=== PATIENT | male | born 1970 | race Caucasian/White ===

== ENCOUNTER 2017-10-03 16:48 | Emergency (ER) | payer SELFPAY ==
[~2017-10-03] VITALS: Ht 175.3 cm; Wt 78.0 kg
[2017-10-03] MEDS ORDERED: NS IV 1000 ML 1,000 ML IV ONE (17:21)
[2017-10-03 17:53] LABS: BASOPHILS % (AUTO) 0 % (0-10); EOSINOPHILS % (AUTO) 0 % (0-10); HEMATOCRIT 34 % (40-54); HEMOGLOBIN 12.3 G/DL (13.3-17.7); LYMPHOCYTES # (AUTO) 0.8 X 10^3 (1.0-4.0); LYMPHOCYTES % (AUTO) 6 % (12-44); MEAN CORPUSCULAR HEMOGLOBIN 28 PG (25-34); MEAN CORPUSCULAR HGB CONC 37 G/DL (32-36); MEAN CORPUSCULAR VOLUME 76 FL (80-99); MEAN PLATELET VOLUME 10.5 FL (7.4-10.4); MONOCYTES # (AUTO) 1.2 X 10^3 (0.0-1.0); MONOCYTES % (AUTO) 9 % (0-12); NEUTROPHILS # (AUTO) 11.4 X 10^3 (1.8-7.8); NEUTROPHILS % (AUTO) 85 % (42-75); PLATELET COUNT 215 10^3/uL (130-400); RED BLOOD COUNT 4.43 10^6/uL (4.35-5.85); RED CELL DISTRIBUTION WIDTH 13.5 % (10.0-14.5); WHITE BLOOD COUNT 13.5 10^3/uL (4.3-11.0)
[2017-10-03 17:58] LABS: BILIRUBIN,URINE NEGATIVE (NEGATIVE); CLARITY,URINE VERY CLOUDY; COLOR,URINE YELLOW; GLUCOSE, URINE (UA) 4+ (NEGATIVE); KETONES,URINE 2+ (NEGATIVE); LEUKOCYTE ESTERASE ,URINE 3+ (NEGATIVE); NITRITE,URINE NEGATIVE (NEGATIVE); PH,URINE 5 (5-9); PROTEIN,URINE 2+ (NEGATIVE); UROBILINOGEN,URINE NORMAL (NORMAL)
[2017-10-03] MEDS ORDERED: inSUlin (REGULAR) HUMAN 1 UNIT/0.01 ML (CHARGE PER UNIT) IV ONE (18:00)
[2017-10-03 18:04] LABS: BAND NEUTROPHILS 0 %; BASOPHILS % (MANUAL) 0 %; EOSINOPHILS % (MANUAL) 0 %; LYMPHOCYTES % (MANUAL) 12 %; MICROCYTOSIS SLIGHT; MONOCYTES % (MANUAL) 3 %; NEUTROPHILS % (MANUAL) 85 %
[2017-10-03 18:06] LABS: BACTERIA,URINE LARGE /HPF; WBC,URINE TNTC /HPF
--- NOTE | 2017-10-03 18:06 | ED General ---
General Stated Complaint: HEADACHE,BACK PAIN,FEVER,HIGH BS,VOMITING Source of Information: Patient Exam Limitations: No Limitations (YUDITH CANTU MD) History of Present Illness Date Seen by Provider: Oct 03, 2017 Time Seen by Provider: 16:55 Initial Comments This 47-year-old gentleman presents to the emergency room by private vehicle as a referral from the walk-in clinic at [facility]. He reports having intermittent fevers since September 29. Temperature has reportedly a been up to 104. He has also had vomiting since that time. He is a type II diabetic and has been unable to keep his medications down because of vomiting. Blood sugars at [facility] were reportedly in the 400-600 range. He received a liter of IV fluids while there. He has felt confused at times. He has had some headache and lower backache. He worked outside doing some mowing in the heat last week and then also working outside with horses on September 29. He believes he got overheated and that started his illness. He has lost appetite and has not been eating or drinking well. He denies any drug or alcohol use. (YUDITH CANTU MD) Allergies and Home Medications Allergies Coded Allergies: No Known Drug Allergies (Unverified , 10/03/17) Home Medications Cephalexin 500 Mg Tablet, 500 MG PO BID Prescribed by: MIGUELANGEL MORFIN on 10/03/172058 Patient Home Medication List Home Medication List Reviewed: Yes (YUDITH CANTU MD) Home Medication List Reviewed: Yes (MIGUELANGEL MORFIN) Review of Systems Constitutional: see HPI EENTM: no symptoms reported Respiratory: no symptoms reported Cardiovascular: no symptoms reported Gastrointestinal: see HPI Genitourinary: no symptoms reported Musculoskeletal: see HPI Skin: no symptoms reported Psychiatric/Neurological: See HPI Hematologic/Lymphatic: No Symptoms Reported Immunological/Allergic: no symptoms reported (YUDITH CANTU MD) Past Apllosz-Wpitlc-Kasvze Hx Past Med/Social Hx: Reviewed and Corrections made (YUDITH CANTU MD) Patient Social History Alcohol Use: Denies Use Recent Foreign Travel: No Contact w/Someone Who Travel: No (YUDITH CANTU MD) Past Medical History Surgeries: Yes Appendectomy, Eye Surgery, Orthopedic (shoulder) Respiratory: No Cardiac: No Neurological: No Reproductive Disorders: No Genitourinary: No Gastrointestinal: No Musculoskeletal: No Endocrine: Yes Diabetes, Non-Insulin dep HEENT: No Cancer: No Did You Recieve Any Treatments: No Psychosocial: No Integumentary: No (YUDITH CANTU MD) Physical Exam Vital Signs Vital Signs - First Documented 10/03/17 17:05 Temp 98.4 Pulse 97 Resp 18 B/P (MAP) 122/85 (97) O2 Delivery Room Air (MIGUELANGEL MORFIN) Vital Signs Capillary Refill : (YUDITH CANTU MD) General Appearance: No Apparent Distress, WD/WN HEENT: PERRL/EOMI, Normal ENT Inspection, Pharynx Normal, Other (oropharynx somewhat dry) Neck: Normal Inspection Respiratory: Lungs Clear, Normal Breath Sounds, No Accessory Muscle Use, No Respiratory Distress Cardiovascular: Regular Rate, Rhythm, No Edema, No Murmur Gastrointestinal: Normal Bowel Sounds, Non Tender, Soft Extremity: Normal Inspection, No Pedal Edema Neurologic/Psychiatric: Alert, Oriented x3, No Motor/Sensory Deficits, Normal Mood/Affect, pot fisher II-XII Norm as Tested Skin: Normal Color, Warm/Dry (YUDITH CANTU MD) Progress/Results/Core Measures Suspected Sepsis SIRS Temperature: Pulse: Respiratory Rate: Laboratory Tests 10/03/17 17:42: White Blood Count 13.5H Blood Pressure / Mean: Laboratory Tests 10/03/17 17:42: Creatinine 1.26, Platelet Count 215, Total Bilirubin 0.6 (YUDITH CANTU MD) Results/Orders Lab Results Laboratory Tests Test 10/03/17 17:22 10/03/17 17:42 10/03/17 17:53 10/03/17 18:52 Range/Units Glucometer 377 H 305 H 70-110 MG/DL White Blood Count 13.5 H 4.3-11.0 10^3/uL Red Blood Count 4.43 4.35-5.85 10^6/uL Hemoglobin 12.3 L 13.3-17.7 G/DL Hematocrit 34 L 40-54 % Mean Corpuscular Volume 76 L 80-99 FL Mean Corpuscular Hemoglobin 28 25-34 PG Mean Corpuscular Hemoglobin Concent 37 H 32-36 G/DL Red Cell Distribution Width 13.5 10.0-14.5 % Platelet Count 215 130-400 10^3/uL Mean Platelet Volume 10.5 H 7.4-10.4 FL Neutrophils (%) (Auto) 85 H 42-75 % Lymphocytes (%) (Auto) 6 L 12-44 % Monocytes (%) (Auto) 9 0-12 % Eosinophils (%) (Auto) 0 0-10 % Basophils (%) (Auto) 0 0-10 % Neutrophils # (Auto) 11.4 H 1.8-7.8 X 10^3 Lymphocytes # (Auto) 0.8 L 1.0-4.0 X 10^3 Monocytes # (Auto) 1.2 H 0.0-1.0 X 10^3 Eosinophils # (Auto) 0.0 0.0-0.3 10^3/uL Basophils # (Auto) 0.0 0.0-0.1 10^3/uL Neutrophils % (Manual) 85 % Lymphocytes % (Manual) 12 % Monocytes % (Manual) 3 % Eosinophils % (Manual) 0 % Basophils % (Manual) 0 % Band Neutrophils 0 % Microcytosis SLIGHT Sodium Level 124 *L 135-145 MMOL/L Potassium Level 3.7 3.6-5.0 MMOL/L Chloride Level 90 L 98-107 MMOL/L Carbon Dioxide Level 19 L 21-32 MMOL/L Anion Gap 15 H 5-14 MMOL/L Blood Urea Nitrogen 28 H 7-18 MG/DL Creatinine 1.26 0.60-1.30 MG/DL Estimat Glomerular Filtration Rate > 60 BUN/Creatinine Ratio 22 Glucose Level 389 H 70-105 MG/DL Calcium Level 8.2 L 8.5-10.1 MG/DL Magnesium Level 1.9 1.8-2.4 MG/DL Total Bilirubin 0.6 0.1-1.0 MG/DL Aspartate Amino Transf (AST/SGOT) 14 5-34 U/L Alanine Aminotransferase (ALT/SGPT) 14 0-55 U/L Alkaline Phosphatase 93 40-136 U/L Total Protein 6.2 L 6.4-8.2 GM/DL Albumin 2.8 L 3.2-4.5 GM/DL Urine Color YELLOW Urine Clarity VERY CLOUDY H Urine pH 5 5-9 Urine Specific [place] 1.010 L 1.016-1.022 Urine Protein 2+ H NEGATIVE Urine Glucose (UA) 4+ H NEGATIVE Urine Ketones 2+ H NEGATIVE Urine Nitrite NEGATIVE NEGATIVE Urine Bilirubin NEGATIVE NEGATIVE Urine Urobilinogen NORMAL NORMAL MG/DL Urine Leukocyte Esterase 3+ H NEGATIVE Urine RBC (Auto) 5+ H NEGATIVE Urine RBC 2-5 H /HPF Urine WBC TNTC H /HPF Urine Crystals NONE /LPF Urine Bacteria LARGE H /HPF Urine Casts PRESENT /LPF Urine Coarse Granular Casts 10-25 H /LPF Urine Mucus NEGATIVE /LPF Urine Culture Indicated YES (MIGUELANGEL MORFIN) My Orders Orders - MIGUELANGEL MORFIN Ceftriaxone Injection (Rocephin Injectio (10/03/17 18:30) Saline Lock/Iv-Start (10/03/17 18:36) Ns Iv 1000 Ml (Sodium Chloride 0.9%) (10/03/17 18:36) (MIGUELANGEL MORFIN) Medications Given in ED Current Medications Medications Dose Ordered Sig/Magy Route Start Time Stop Time Status Last Admin Dose Admin Ceftriaxone Sodium 1000 mg/ Sodium Chloride 50 ml @ 100 mls/hr ONCE ONCE IV 10/03/17 18:30 10/03/17 18:59 DC 10/03/17 18:37 100 MLS/HR Insulin Human Regular 5 unit ONCE ONCE IV 10/03/17 18:00 10/03/17 18:01 DC 10/03/17 18:09 5 UNIT Sodium Chloride 1,000 ml @ 0 mls/hr Q0M ONCE IV 10/03/17 17:21 10/03/17 17:27 DC 10/03/17 17:41 1,000 MLS/HR (MIGUELANGEL MORFIN) Vital Signs/I&O 10/03/17 17:05 Temp 98.4 Pulse 97 Resp 18 B/P (MAP) 122/85 (97) O2 Delivery Room Air (MIGUELANGEL MORFIN) Vital Signs/I&O Capillary Refill : (YUDITH CANTU MD) Point of Care Testing Finger Stick Blood Glucose: 377 Blood Glucose Action Taken: nurse notified (YUDITH CANTU MD) Progress Note : Time: 18:06 Progress Note Patient was seen and examined. Labs were ordered. A liter of IV fluids is infusing. Insulin 5 units IV was ordered to help drive down blood sugar. Patient denied any nausea at this time and no medications were required for treatment of nausea. Labs are still pending. Care of this patient has been transferred to Dr. Morfin at this time. (YUDITH CANTU MD) Progress Note #1: Time: 18:28 Progress Note I saw and examined the patient after taking over his care from Dr. Johnson. I agree with the initial history, physical exam and review of systems. The patient seems to have gotten over heated, heat exhaustion, dehydration and cannot take his blood sugar medicine so his blood sugars went up to 400+ range according to his history and this probably led to a urinary tract infection. He is hyponatremic probably due to his dehydration secondary to uncontrolled diabetes and heat exhaustion. He's been given his 5 units of insulin we'll recheck his sugars run about 20-30 minutes. We are going to give him some Rocephin and the option to stay observation to have labs rechecked or we can follow him up in the clinic in the next day or 2. Right now he says his headache and pain is gone he is no longer having any malaise tiredness or weakness in his feeling much better. He is now producing some urine. Progress Note #2: Time: 18:37 Progress Note After discussing the options patient says that he can get up and walk around after getting his third bag of fluids for the day and his blood sugars are getting under better control to tolerate some by mouth fluids here in the ER we' ll give him his Rocephin now and some antibiotics to go home on and have him follow up with his scheduled appointment on the which is 2 days from now. He does not call them tomorrow and get set up to have labs and urine re- drawn . Progress Note #3: Time: 20:54 Progress Note The patient was gotten up and walked around the ER a few times feeling much better having no pain, weakness or nausea. We have offered observation stay for repeat labs in the morning and some gentle fluids overnight versus going home drinking fluids resting staying in the cool and following up in 2 days with his scheduled appointment and he has declined a hospital stay. (MIGUELANGEL MORFIN) Departure Impression Primary Impression: Dehydration after exertion Additional Impressions: Heat exhaustion due to salt depletion, initial encounter History of diabetes mellitus, type II Urinary tract infection Qualified Codes: N30.01 - Acute cystitis with hematuria Disposition: HOME, SELF-CARE Condition: Improved Departure-Patient Inst. Decision time for Depature: 20:56 (MIGUELANGEL MORFIN) Referrals: NO,LOCAL PHYSICIAN (PCP) Primary Care Physician Patient Instructions: Urinary Tract Infection, Adult (DC) Add. Discharge Instructions: Go home and drink plenty of fluids. Have a half strength sports drink a day. Stay in the cool and rest. Do not use ibuprofen or Naprosyn. You can use Tylenol if you're having some aches. Tomorrow morning call your primary care doctor's office and asked them to repeat labs and urinalysis before your appointment , 2 days from now. Return to the ER if you have worsening or new symptoms. 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 Scripts Cephalexin (Cephalexin) 500 Mg Tablet 500 MG PO BID for 7 Days, #14 TAB 0 Refills Prov: MIGUELANGEL MORFIN 10/03/17 Copy Copies To 1: LOAN RYAN JOSHUA T MD Oct 03, 2017 18:05 MIGUELANGEL MORFIN Oct 03, 2017 18:30
[2017-10-03 18:14] LABS: ALANINE AMINOTRANSFERASE 14 U/L (0-55); ALBUMIN 2.8 GM/DL (3.2-4.5); ALKALINE PHOSPHATASE 93 U/L (40-136); BILIRUBIN,TOTAL 0.6 MG/DL (0.1-1.0); BUN/CREATININE RATIO 22; CALCIUM 8.2 MG/DL (8.5-10.1); CARBON DIOXIDE 19 MMOL/L (21-32); CHLORIDE 90 MMOL/L (98-107); CREATININE SERUM 1.26 MG/DL (0.60-1.30); GFR ESTIMATED > 60; GLUCOSE 389 MG/DL (70-105); MAGNESIUM 1.9 MG/DL (1.8-2.4); POTASSIUM 3.7 MMOL/L (3.6-5.0); TOTAL PROTEIN 6.2 GM/DL (6.4-8.2)
[2017-10-03 18:21] LABS: SODIUM 124 MMOL/L (135-145)
[2017-10-03] MEDS ORDERED: cefTRIAXone INJECTION 1,000 MG in NS (IVPB) 50 ML IV ONE (18:30)
[2017-10-03] MEDS ORDERED: NS IV 1000 ML 1,000 ML IV SCH (18:36)
[2017-10-03] MEDS ORDERED: CEPH500T PO (20:59)
[2017-10-03 21:15] VITALS: BP 120/84
== END 2017-10-03 21:15 | disposition home or self-care (01) ==
LOC: ER 16:51
DX: T67.4XXA Heat exhaustion due to salt depletion, initial encounter (principal); E86.0 Dehydration; E11.9 Type 2 diabetes mellitus without complications; N39.0 Urinary tract infection, site not specified; Z90.49 Acquired absence of other specified parts of digestive tract
CPT/HCPCS: 36415; 80053; 81000; 82962; 83735; 85007; 85027; 87077; 87088; 87186; 96361; 96365; 96375

== ENCOUNTER 2021-02-13 17:54 | Inpatient (IN) | payer SELFPAY ==
[~2021-02-13] VITALS: Ht 175.3 cm; Wt 97.4 kg
[~2021-02-13 17:54] MED LIST: CEPH500T PO
[2021-02-13] MEDS ORDERED: KETOROLAC 30 MG/ML VIAL IVP ONE (18:15)
[2021-02-13] MEDS ORDERED: ANTACID SUSP 30 ML UDC (MYLANTA) PO ONE (18:15)
[2021-02-13] MEDS ORDERED: LACTATED RINGERS 1,000 ML IV SCH (18:15)
[2021-02-13] MEDS ORDERED: LIDOCAINE 2% VISCOUS 15 ML UDC PO ONE (18:15)
[2021-02-13] MEDS ORDERED: HYOSCYAMINE 0.125 MG (LEVSIN) TAB PO ONE (18:15)
[2021-02-13] MEDS ORDERED: fentaNYL INJ 100 MCG/2 ML AMP IVP ONE ×2 (18:15→19:30)
--- NOTE | 2021-02-13 18:17 | ED Abdominal Pain ---
General Chief Complaint: Abdominal/GI Problems Stated Complaint: RUQ PAIN Nursing Triage Note: PT AMBULATE TO ROOM 03 WITH C/O RUQ PAIN STARTING X3-4 HOURS AGO. PT REPORTS DRINKING X1 BEER TO "HELP ME BURP" AND STATES THAT HE VOMITED AFTER. PT REPORT TAKING HYDROCODONE AT 1545. Source of Information: Patient Exam Limitations: No Limitations (ALMA PINA APRN) History of Present Illness Date Seen by Provider: Feb 13, 2021 Time Seen by Provider: 18:16 Initial Comments To ER by private vehicle with reports of right upper quadrant abdominal pain for 3 to 4 hours. He last ate a biscuit at about 9 AM this morning. This pain began at about 3 PM. He was traveling from here to [place] for a horse roping competition but had to leave early because of the pain. He has subsequently become nauseated and began vomiting. Timing/Duration: 1-2 Days Severity/Quality: Moderate Location: RUQ Radiation: No Radiation Activities at Onset: None Associated Symptoms: Denies Symptoms, Nausea/Vomiting (ALMA PINA APRN) Allergies and Home Medications Allergies Coded Allergies: No Known Drug Allergies (Unverified , 10/03/17) Patient Home Medication List Home Medication List Reviewed: Yes (ALMA PINA APRN) Cephalexin (Cephalexin) 500 Mg Tablet, 500 MG PO BID Prescribed by: MIGUELANGEL DARLING on 10/03/172058 Review of Systems Review of Systems Constitutional: see HPI EENTM: No Symptoms Reported Respiratory: No Symptoms Reported Cardiovascular: No Symptoms Reported Gastrointestinal: See HPI, Abdominal Pain Genitourinary: No Symptoms Reported Musculoskeletal: no symptoms reported Skin: no symptoms reported Psychiatric/Neurological: No Symptoms Reported Endocrine: No Symptoms Reported Hematologic/Lymphatic: No Symptoms Reported (ALMA PINA APRN) Past Yughtap-Oetmmz-Skktjg Hx Patient Social History Tobacco Use?: No Smoking Status: Never a Smoker Smokeless Tobacco Frequency: Never a User Use of E-Cig and/or Vaping [place]: Never a User Substance use?: No Alcohol Use?: Yes Alcohol Frequency: Rarely Pt feels they are or have been: No (ALMA PINA APRN) Seasonal Allergies Seasonal Allergies: No (ALMA PINA APRN) Past Medical History Surgeries: Yes Appendectomy, Eye Surgery, Orthopedic Respiratory: No Cardiac: No Neurological: No Reproductive Disorders: No Genitourinary: No Gastrointestinal: No Musculoskeletal: No Endocrine: Yes Diabetes, Non-Insulin dep HEENT: No Cancer: No Did You Recieve Any Treatments: No Psychosocial: No Integumentary: No Blood Disorders: No (ALMA PINA APRN) Physical Exam Vital Signs Vital Signs - First Documented 02/13/21 18:00 Temp 36.9 Pulse 82 Resp 18 B/P (MAP) 200/101 (134) O2 Delivery Room Air (YUDITH CANTU MD) Vital Signs Capillary Refill : Less Than 3 Seconds (ALMA PINA APRN) Height/Weight/BMI Height: 5'9.00" Weight: 172lbs. oz. 78.745996hs; 32.00 BMI Method:Stated General Appearance: WD/WN, no apparent distress HEENT: PERRL/EOMI, normal ENT inspection Respiratory: no respiratory distress, no accessory muscle use Cardiovascular: regular rate, rhythm, no murmur Gastrointestinal: normal bowel sounds, soft, tenderness Extremities: normal range of motion, non-tender Neurologic/Psychiatric: alert, normal mood/affect, oriented x 3 Skin: normal color, warm/dry (ALMA PINA APRN) Progress/Results/Core Measures Results/Orders Lab Results Laboratory Tests Test 02/13/21 18:16 02/13/21 18:37 Range/Units White Blood Count 10.6 4.3-11.0 10^3/uL Red Blood Count 4.16 L 4.30-5.52 10^6/uL Hemoglobin 11.7 L 13.3-17.7 g/dL Hematocrit 36 L 40-54 % Mean Corpuscular Volume 86 80-99 fL Mean Corpuscular Hemoglobin 28 25-34 pg Mean Corpuscular Hemoglobin Concent 33 32-36 g/dL Red Cell Distribution Width 13.5 10.0-14.5 % Platelet Count 271 130-400 10^3/uL Mean Platelet Volume 10.5 9.0-12.2 fL Immature Granulocyte % (Auto) 0 % Neutrophils (%) (Auto) 80 H 42-75 % Lymphocytes (%) (Auto) 12 12-44 % Monocytes (%) (Auto) 6 0-12 % Eosinophils (%) (Auto) 2 0-10 % Basophils (%) (Auto) 1 0-10 % Neutrophils # (Auto) 8.5 H 1.8-7.8 10^3/uL Lymphocytes # (Auto) 1.3 1.0-4.0 10^3/uL Monocytes # (Auto) 0.6 0.0-1.0 10^3/uL Eosinophils # (Auto) 0.3 0.0-0.3 10^3/uL Basophils # (Auto) 0.1 0.0-0.1 10^3/uL Immature Granulocyte # (Auto) 0.0 0.0-0.1 10^3/uL Sodium Level 134 L 135-145 MMOL/L Potassium Level 4.5 3.6-5.0 MMOL/L Chloride Level 106 98-107 MMOL/L Carbon Dioxide Level 16 L 21-32 MMOL/L Anion Gap 12 5-14 MMOL/L Blood Urea Nitrogen 24 H 7-18 MG/DL Creatinine 1.97 H 0.60-1.30 MG/DL Estimat Glomerular Filtration Rate 36 BUN/Creatinine Ratio 12 Glucose Level 199 H 70-105 MG/DL Calcium Level 8.8 8.5-10.1 MG/DL Corrected Calcium 9.2 8.5-10.1 MG/DL Total Bilirubin 3.5 H 0.1-1.0 MG/DL Aspartate Amino Transf (AST/SGOT) 265 H 5-34 U/L Alanine Aminotransferase (ALT/SGPT) 412 H 0-55 U/L Alkaline Phosphatase 272 H 40-136 U/L Total Protein 6.6 6.4-8.2 GM/DL Albumin 3.5 3.2-4.5 GM/DL Lipase 74 8-78 U/L Serum Alcohol < 10 <10 MG/DL (YUDITH CANTU MD) Vital Signs/I&O 02/13/21 18:00 Temp 36.9 Pulse 82 Resp 18 B/P (MAP) 200/101 (134) O2 Delivery Room Air (YUDITH CANTU MD) Blood Pressure Mean: 134 Departure Communication (Admissions) 1921- spoke with Dr. Leon and Dr. Elliott, will admit the patient, repeat a CMP in the morning, empirically cover with Rocephin and Flagyl, pain and nausea medication. NAME: LILIA STOUT [facility] REC#: [id number] PT STATUS: REG ER : 1970 PHYSICIAN: ALMA PINA TITLE 1 TUTOR ADMIT DATE: 02/13/21/ER Draft Date of Exam:02/13/21 CT ABDOMEN/PELVIS W PROCEDURE: CT abdomen and pelvis with contrast. TECHNIQUE: Multiple contiguous axial images were obtained through the abdomen and pelvis after administration of intravenous contrast. Auto Exposure Controls were utilized during the CT exam to meet ALARA standards for radiation dose reduction. All CT scans use one or more of the following dose optimizing techniques: automated exposure control, MA and/or KvP adjustment based on patient size and exam type or iterative reconstruction. INDICATION: Right upper quadrant abdominal pain. Vomiting. COMPARISON: None. FINDINGS: Included portions of the lung bases are clear. CT ABDOMEN: Normal appendix cannot be adequately identified, but appears to be surgically absent. Small bowel loops are nondistended. Moderate air and stool is noted scattered throughout the colon. There is abnormal thickening of the gallbladder wall. There is also hypoenhancement of the adjacent hepatic parenchyma. Note is also made of mild intrahepatic ductal dilatation. Common bile duct measures 11 mm. This is greater than normal for a patient of this age. Please note, CT is suboptimal to assess for cholelithiasis or choledocholithiasis. No focal pancreatic head masses are seen. Pancreatic duct is decompressed. Pancreas has an otherwise unremarkable CT appearance as well. No focal hepatic lesions are identified. There is normal enhancement of the portal vein. The kidneys, adrenal glands and spleen have a normal CT appearance. Fat-containing supraumbilical hernia is noted. Ostium measures 1.3 cm. No abnormal mesenteric or retroperitoneal adenopathy is seen. There is no loculated fluid collection, free fluid or free air. Osseous structures show no acute abnormality. CT PELVIS: Urinary bladder is grossly unremarkable. There is no loculated fluid collection, free fluid, nor free air within the pelvis. No abnormal lymph nodes are seen. Osseous structures show no acute abnormality. IMPRESSION: 1. Abnormal appearance to the gallbladder as well as the biliary ductal system, as described above. Findings could be on the basis of choledocholithiasis and associated cholecystitis. Ampullary or pancreatic head obstructive neoplasm cannot be excluded. Correlation with MRCP is recommended. 2. Moderate colonic air and stool. Please correlate for constipation. Dictated on workstation # [id number] Dict: 02/13/21 1857 Trans: 02/13/211904 [facility] [id number] Interpreted by: ARLETH MCCLAIN MD Electronically signed by: (ALMA PINA APRN) Impression Primary Impression: Acute cholecystitis due to biliary calculus Disposition: ADMITTED INPATIENT Condition: Stable Admissions Decision to Admit Reason: Admit from ER (General) Decision to Admit/Date: Feb 13, 2021 Time/Decision to Admit Time: 19:22 (ALMA PINA APRN) Departure-Patient Inst. Referrals: NO,LOCAL PHYSICIAN (PCP/Family) Primary Care Physician ATTENDING PHYSICIAN NOTE: I was physically present as attending physician in the emergency department during the care of this patient, but I was not directly involved in the decision making or delivery of care for this patient. (YUDITH CANTU MD) ALMA PINA APRN Feb 13, 2021 18:17 YUDITH CANTU MD Feb 14, 2021 06:33
[2021-02-13 18:21] LABS: BASOPHILS # (AUTO) 0.1 10^3/uL (0.0-0.1); BASOPHILS % (AUTO) 1 % (0-10); EOSINOPHILS # (AUTO) 0.3 10^3/uL (0.0-0.3); EOSINOPHILS % (AUTO) 2 % (0-10); HEMATOCRIT 36 % (40-54); HEMOGLOBIN 11.7 g/dL (13.3-17.7); LYMPHOCYTES # (AUTO) 1.3 10^3/uL (1.0-4.0); LYMPHOCYTES % (AUTO) 12 % (12-44); MEAN CORPUSCULAR HEMOGLOBIN 28 pg (25-34); MEAN CORPUSCULAR HGB CONC 33 g/dL (32-36); MEAN CORPUSCULAR VOLUME 86 fL (80-99); MEAN PLATELET VOLUME 10.5 fL (9.0-12.2); MONOCYTES # (AUTO) 0.6 10^3/uL (0.0-1.0); MONOCYTES % (AUTO) 6 % (0-12); NEUTROPHILS # (AUTO) 8.5 10^3/uL (1.8-7.8); NEUTROPHILS % (AUTO) 80 % (42-75); PLATELET COUNT 271 10^3/uL (130-400); WHITE BLOOD COUNT 10.6 10^3/uL (4.3-11.0)
[2021-02-13] MEDS ORDERED: IOHEXOL 350 MG/ML 100 ML (OMNIPAQUE 350) VIAL IV ONE (18:30)
[2021-02-13] MEDS ORDERED: NS 100 ML (IVPB) BAG IV ONE (18:30)
[2021-02-13] MEDS ORDERED: HOLD METFORMIN - RECEIVED CONTRAST 20 ML VIAL IV SCH (18:30)
[2021-02-13 19:01] LABS: ALBUMIN 3.5 GM/DL (3.2-4.5); CHLORIDE 106 MMOL/L (98-107); POTASSIUM 4.5 MMOL/L (3.6-5.0); SODIUM 134 MMOL/L (135-145)
[2021-02-13 19:02] LABS: CALCIUM 8.8 MG/DL (8.5-10.1)
[2021-02-13 19:03] LABS: GLUCOSE 199 MG/DL (70-105); TOTAL PROTEIN 6.6 GM/DL (6.4-8.2)
[2021-02-13 19:04] LABS: CARBON DIOXIDE 16 MMOL/L (21-32)
[2021-02-13 19:05] LABS: BILIRUBIN,TOTAL 3.5 MG/DL (0.1-1.0)
--- NOTE | 2021-02-13 19:06 | Diagnostic Imaging Report ---
PROCEDURE: CT abdomen and pelvis with contrast. TECHNIQUE: Multiple contiguous axial images were obtained through the abdomen and pelvis after administration of intravenous contrast. Auto Exposure Controls were utilized during the CT exam to meet ALARA standards for radiation dose reduction. All CT scans use one or more of the following dose optimizing techniques: automated exposure control, MA and/or KvP adjustment based on patient size and exam type or iterative reconstruction. INDICATION: Right upper quadrant abdominal pain. Vomiting. COMPARISON: None. FINDINGS: Included portions of the lung bases are clear. CT ABDOMEN: Normal appendix cannot be adequately identified, but appears to be surgically absent. Small bowel loops are nondistended. Moderate air and stool is noted scattered throughout the colon. There is abnormal thickening of the gallbladder wall. There is also hypoenhancement of the adjacent hepatic parenchyma. Note is also made of mild intrahepatic ductal dilatation. Common bile duct measures 11 mm. This is greater than normal for a patient of this age. Please note, CT is suboptimal to assess for cholelithiasis or choledocholithiasis. No focal pancreatic head masses are seen. Pancreatic duct is decompressed. Pancreas has an otherwise unremarkable CT appearance as well. No focal hepatic lesions are identified. There is normal enhancement of the portal vein. The kidneys, adrenal glands and spleen have a normal CT appearance. Fat-containing supraumbilical hernia is noted. Ostium measures 1.3 cm. No abnormal mesenteric or retroperitoneal adenopathy is seen. There is no loculated fluid collection, free fluid or free air. Osseous structures show no acute abnormality. CT PELVIS: Urinary bladder is grossly unremarkable. There is no loculated fluid collection, free fluid, nor free air within the pelvis. No abnormal lymph nodes are seen. Osseous structures show no acute abnormality. IMPRESSION: 1. Abnormal appearance to the gallbladder as well as the biliary ductal system, as described above. Findings could be on the basis of choledocholithiasis and associated cholecystitis. Ampullary or pancreatic head obstructive neoplasm cannot be excluded. Correlation with MRCP is recommended. 2. Moderate colonic air and stool. Please correlate for constipation. Dictated by: Dictated on workstation # [id number]
[2021-02-13 19:07] LABS: ALKALINE PHOSPHATASE 272 U/L (40-136); CREATININE SERUM 1.97 MG/DL (0.60-1.30); GFR ESTIMATED 36
[2021-02-13 19:08] LABS: BUN/CREATININE RATIO 12
[2021-02-13 19:10] LABS: ALANINE AMINOTRANSFERASE 412 U/L (0-55); LIPASE 74 U/L (8-78)
[2021-02-13] MEDS ORDERED: cloNIDine 0.1 MG (CATAPRES) TAB PO ONE (19:30)
[2021-02-13] MEDS ORDERED: cefTRIAXone 1,000 MG in WATER (STERILE) FOR INJECTION 10 ML IV ONE (19:30)
[2021-02-13] MEDS ORDERED: ONDANSETRON 4 MG/2 ML (SDV) Z0FRAN IV PRN (20:45)
[2021-02-13] MEDS: inSUlin ASPART (NovoLOG) 1 UNIT/0.01 ML (CHARGE PER UNIT) SC SCH (20:52)
[2021-02-13] MEDS: LACTATED RINGERS 1,000 ML IV SCH (21:17)
[2021-02-13] MEDS: metroNIDAZOLE 500 MG/100 ML IVPB (PRE-MIX) IV SCH (21:17)
[2021-02-13] MEDS: CIPROFLOXACIN 400 MG/D5W 200 ML (PRE-MIX) IV SCH (21:18)
[2021-02-13] MEDS ORDERED: HYDROcodone/APAP 7.5 MG/325 MG (LORTAB, LORCET PLUS) TABLET PO PRN (22:00)
--- NOTE | 2021-02-13 22:29 | CONSULTATION REPORT ---
DATE OF SERVICE: 02/13/2021 ADMITTING PHYSICIAN: Dr. Elliott. HISTORY OF PRESENT ILLNESS: The patient is a 50-year-old male, who presented to the Emergency Department with pain in the right upper abdominal quadrant starting this morning and worsened over time. He states that he also did have a few episodes of nausea and vomiting. He does not report any diarrhea nor constipation as well as no red blood per rectum nor any dark tarry stools. He also does not report any fever nor chills as well as no recent inadvertent weight loss. A CT scan was performed, which did show biliary ductal dilatation as well as cholelithiasis; however, no identifiable choledocholithiasis. PAST MEDICAL HISTORY: Diabetes. PAST SURGICAL HISTORY: Appendectomy, orthopedic procedure. ALLERGIES: No known drug allergies. MEDICATIONS: Cephalexin 500 mg b.i.d. SOCIAL HISTORY: Negative smoke. Does drink alcohol socially. FAMILY HISTORY: Noncontributory. VITAL SIGNS: Temperature 36.9, blood pressure 200/101, pulse 82, respirations 18, pulse ox 100% on room air. REVIEW OF SYSTEMS: This is a well-nourished male, currently guarded secondary to the abdominal pain. He is not experiencing any shortness of breath or difficulty breathing. No chest pain, palpitations, diaphoresis. Sharp pain in the epigastric region as well as right upper abdominal quadrant starting this morning, which persisted and this was also associated with few episodes of nausea and vomiting, but no hematemesis, no coffee ground emesis. No diarrhea, constipation, no red blood per rectum, no dark tarry stools. No fever, chills, no recent inadvertent weight loss. All other review of systems negative. PHYSICAL EXAMINATION: CHEST: Clear. Good breath sounds bilaterally. HEART: Regular, no murmurs. EXTREMITIES: No lower extremity edema, negative Homans sign. HEENT: No scleral icterus. NECK: No cervical lymphadenopathy. ABDOMEN: Soft, nondistended. There is pain in the right upper abdominal quadrant upon deep palpation. No hernias. No guarding. SKIN: Warm, dry. LABORATORY DATA: WBC 10.6, hemoglobin 11.7, hematocrit 36, platelets 271. BUN 24, creatinine 1.97. Total bilirubin 3.5, AST 265, ALT 412, alkaline phosphatase 272. ASSESSMENT AND PLAN: A 50-year-old male with gallbladder wall thickening as well as cholelithiasis. The patient also has ductal dilatation measuring [address] scan could not rule out choledocholithiasis or as well as the possibility of a pancreatic or periampullary mass. MRCP was recommended. At this time, we will proceed with IV hydration, clear liquid diet, adequate pain control as well as antinausea medications. We will get serial comprehensive metabolic profile as well as continue to monitor his clinical status and obtain an MRCP. Job ID: [id number] DocumentID: [id number] Dictated Date: 02/13/2021 21:54:36 Lemon Picker Date: 02/13/2021 22:29:31 Dictated By: CARLOS CARRASCO MD
[2021-02-14 00:22] VITALS: BP 161/87
[2021-02-14 04:35] VITALS: BP 167/84
[2021-02-14] MEDS: inSUlin ASPART (NovoLOG) 1 UNIT/0.01 ML (CHARGE PER UNIT) SC SCH ×4 (05:48→21:03)
[2021-02-14] MEDS: LACTATED RINGERS 1,000 ML IV SCH ×3 (05:48→20:32)
[2021-02-14 06:31] LABS: BASOPHILS # (AUTO) 0.1 10^3/uL (0.0-0.1); BASOPHILS % (AUTO) 1 % (0-10); EOSINOPHILS # (AUTO) 0.2 10^3/uL (0.0-0.3); EOSINOPHILS % (AUTO) 4 % (0-10); HEMATOCRIT 32 % (40-54); HEMOGLOBIN 10.6 g/dL (13.3-17.7); LYMPHOCYTES # (AUTO) 1.1 10^3/uL (1.0-4.0); LYMPHOCYTES % (AUTO) 18 % (12-44); MEAN CORPUSCULAR HEMOGLOBIN 28 pg (25-34); MEAN CORPUSCULAR HGB CONC 33 g/dL (32-36); MEAN CORPUSCULAR VOLUME 85 fL (80-99); MONOCYTES # (AUTO) 0.6 10^3/uL (0.0-1.0); MONOCYTES % (AUTO) 10 % (0-12); NEUTROPHILS # (AUTO) 4.1 10^3/uL (1.8-7.8); NEUTROPHILS % (AUTO) 67 % (42-75); PLATELET COUNT 246 10^3/uL (130-400); WHITE BLOOD COUNT 6.2 10^3/uL (4.3-11.0)
[2021-02-14 06:32] LABS: ALBUMIN 3.4 GM/DL (3.2-4.5)
[2021-02-14 06:33] LABS: POTASSIUM 3.9 MMOL/L (3.6-5.0)
[2021-02-14 06:35] LABS: TOTAL PROTEIN 6.2 GM/DL (6.4-8.2)
[2021-02-14 06:37] LABS: BILIRUBIN,TOTAL 3.4 MG/DL (0.1-1.0)
[2021-02-14 06:38] LABS: CREATININE SERUM 1.92 MG/DL (0.60-1.30)
--- NOTE | 2021-02-14 06:39 | History & Physical-Hospitalist ---
History of Present Illness HPI/Chief Complaint Chief complaint: Abdominal pain History of present illness: This is a 50-year-old white male who presented with abdominal pain found to have acute cholecystitis with possible biliary obstruction. LFTs are stable and hopefully will trend down to be able to undergo cholecystectomy tomorrow after MRCP. Patient doing well and has no complaints. Protonix will be given twice daily and Tums. Source: patient Exam Limitations: no limitations Date Seen 02/14/21 Time Seen by a Provider: 12:30 Attending Physician Jessy Elliott DO PCP No,Local Physician Referring Physician Date of Admission Feb 13, 2021 at 19:18 Home Medications & Allergies Home Medications Reviewed patient Home Medication Reconciliation performed by pharmacy medication reconciliations polysomnography technician and/or nursing. Patients Allergies have been reviewed. Allergies Allergies Coded Allergies No Known Drug Allergies (Unverified10/03/17) Past Qahiqoi-Beclup-Mjljcb Hx Patient Social History Marrital Status: single Employed/Student: employed Tobacco Use?: No Smoking Status: Never a Smoker Smokeless Tobacco Frequency: Never a User Use of E-Cig and/or Vaping [place]: Never a User Substance use?: No Alcohol Use?: No Alcohol Frequency: Rarely Pt feels they are or have been: No Immunizations Up To Date First/Initial COVID19 Vaccinat: HAVE NOT GET THE VACCINE Seasonal Allergies Seasonal Allergies: No Current Status Advance Directives: No Communicates: Verbally Primary Language: Irish Is interpretation needed?: No Sensory deficits: Vision impairment Implanted or Applied Medical D: None Past Medical History Surgeries: Appendectomy, Eye Surgery, Orthopedic Diabetes, Non-Insulin dep Did You Recieve Any Treatments: No Blood Disorders: No Review of Systems Constitutional: see HPI, malaise, weakness EENTM: no symptoms reported Respiratory: no symptoms reported Cardiovascular: no symptoms reported Gastrointestinal: abdominal pain, nausea, vomiting Genitourinary: no symptoms reported Musculoskeletal: no symptoms reported Skin: no symptoms reported Psychiatric/Neurological: No Symptoms Reported All Other Systems Reviewed Negative Unless Noted: Yes Physical Exam Physical Exam Vital Signs Vital Signs - First Documented 02/13/21 02/14/21 18:00 00:22 Temp 36.9 Pulse 82 Resp 18 B/P (MAP) 200/101 (134) Pulse Ox 98 O2 Delivery Room Air Capillary Refill : Less Than 3 Seconds Height, Weight, BMI Height: 5'9.00" Weight: 172lbs. oz. [id number]; 31.69 BMI Method:Stated General Appearance: No Apparent Distress, WD/WN, Obese Eyes: Right Eye Normal Inspection, Right Eye PERRL HEENT: PERRL/EOMI, Normal ENT Inspection, Pharynx Normal, Moist Mucous Membranes Neck: Full Range of Motion, Normal Inspection, Non Tender Respiratory: Chest Non Tender, Lungs Clear, Normal Breath Sounds, No Accessory Muscle Use, No Respiratory Distress Cardiovascular: Regular Rate, Rhythm, No Edema, No Gallop, No JVD, No Murmur, Normal Peripheral Pulses Gastrointestinal: Normal Bowel Sounds, No Organomegaly, No Pulsatile Mass, Non Tender, Soft Back: Normal Inspection, No CVA Tenderness, No Vertebral Tenderness Extremity: Normal Capillary Refill, Normal Inspection, Normal Range of Motion, Non Tender, No Calf Tenderness, No Pedal Edema Neurologic/Psychiatric: Alert, Oriented x3, No Motor/Sensory Deficits, Normal Mood/Affect Skin: Normal Color, Warm/Dry Lymphatic: No Adenopathy Results Results/Procedures Labs Laboratory Tests 02/13/21 18:16 02/13/21 18:37 02/14/21 05:40 Patient resulted labs reviewed. Assessment/Plan Admission Diagnosis Assessment: Acute cholecystitis Biliary obstruction r/o mass vs. stone with MRCP tomorrow Elevated LFT's Plan: Monitor liver function IV abx Admission Status: Inpatient Order (span 2 midnights) Reason for Inpatient Admission: cholecystitis Diagnosis/Problems Diagnosis/Problems (1) Acute cholecystitis due to biliary calculus Status: Acute JESSY ELLIOTT DO Feb 14, 2021 06:39
[2021-02-14 07:34] VITALS: BP 174/85
[2021-02-14] MEDS: meTOproloL SUCCINATE 50 MG (TOPROL XL) TAB PO SCH (08:24)
[2021-02-14] MEDS: amLODIPine 10 MG (NORVASC) TAB PO SCH (08:24)
[2021-02-14] MEDS: metroNIDAZOLE 500 MG/100 ML IVPB (PRE-MIX) IV SCH ×2 (08:24→19:33)
[2021-02-14] MEDS ORDERED: PANTOPRAZOLE 40 MG (PROTONIX) VIAL IV SCH (09:00)
[2021-02-14] MEDS: CIPROFLOXACIN 400 MG/D5W 200 ML (PRE-MIX) IV SCH ×2 (10:18→21:10)
--- NOTE | 2021-02-14 10:39 | Diagnostic Imaging Report ---
PROCEDURE: US Gallbladder. TECHNIQUE: Multiple real-time grayscale images were obtained over the right upper quadrant in various projections. INDICATION: Acute cholecystitis. Concern for biliary obstruction. COMPARISON: CT abdomen and pelvis with IV contrast 02/13/2021. FINDINGS: Normal echogenicity of the liver with no focal mass or fluid collection. Normal hepatopetal flow in the main portal vein. The common bile duct measures 1.1 cm. Multiple gallstones within the gallbladder. There is wall thickening of the gallbladder measuring up to 0.4 cm. No pericholecystic fluid is seen. No stones are seen within the common bile duct. Positive sonographic Denis sign. The pancreas and aorta are not well seen due to overlying bowel gas. IVC is patent. The right kidney measures 12.2 cm. No right renal stone, mass, cyst or hydronephrosis. No free fluid in the abdomen. IMPRESSION: Cholelithiasis with gallbladder wall thickening and positive sonographic Denis sign would be compatible with acute cholecystitis. The common bile duct is dilated to 1.1 cm with no choledocholithiasis identified. No intrahepatic biliary ductal dilatation is seen. Dictated by: Dictated on workstation # [id number]
[2021-02-14 11:06] VITALS: BP 164/81
[2021-02-14] MEDS ORDERED: CALCIUM CARBONATE 500 MG (TUMS) TAB.CHEW PO PRN (12:45)
[2021-02-14] MEDS: ENOXAPARIN 40 MG/0.4 ML (LOVENOX) SYR SC SCH (14:51)
[2021-02-14] MEDS: fentaNYL INJ 100 MCG/2 ML AMP IV PRN ×3 (15:09→18:34)
[2021-02-14 16:44] VITALS: BP 169/79
[2021-02-14] MEDS ORDERED: HYDROmorphone 2 MG/ML VIAL (DILAUDID) ONE (16:58)
[2021-02-14] MEDS ORDERED: PROMETHAZINE INJ 25 MG/ML (PHENERGAN) AMP IVP PRN (17:00)
[2021-02-14] MEDS ORDERED: HYDROmorphone 2 MG/ML VIAL (DILAUDID) IV PRN (17:00)
[2021-02-14] MEDS ORDERED: KETOROLAC 15 MG/ML VIAL IVP PRN (18:45)
[2021-02-14] MEDS: PANTOPRAZOLE 40 MG (PROTONIX) VIAL IV SCH (19:33)
[2021-02-14 19:53] VITALS: BP 175/90
[2021-02-15 00:21] VITALS: BP 165/82
[2021-02-15] MEDS: LACTATED RINGERS 1,000 ML IV SCH ×4 (02:36→23:53)
[2021-02-15 04:46] VITALS: BP 175/83
[2021-02-15] MEDS: inSUlin ASPART (NovoLOG) 1 UNIT/0.01 ML (CHARGE PER UNIT) SC SCH ×4 (05:23→20:54)
[2021-02-15 05:58] LABS: BASOPHILS % (AUTO) 1 % (0-10); EOSINOPHILS # (AUTO) 0.4 10^3/uL (0.0-0.3); EOSINOPHILS % (AUTO) 6 % (0-10); HEMATOCRIT 31 % (40-54); HEMOGLOBIN 10.3 g/dL (13.3-17.7); LYMPHOCYTES # (AUTO) 1.1 10^3/uL (1.0-4.0); LYMPHOCYTES % (AUTO) 17 % (12-44); MEAN CORPUSCULAR HEMOGLOBIN 28 pg (25-34); MEAN CORPUSCULAR HGB CONC 33 g/dL (32-36); MEAN CORPUSCULAR VOLUME 84 fL (80-99); MEAN PLATELET VOLUME 10.8 fL (9.0-12.2); MONOCYTES # (AUTO) 0.6 10^3/uL (0.0-1.0); MONOCYTES % (AUTO) 9 % (0-12); NEUTROPHILS # (AUTO) 4.5 10^3/uL (1.8-7.8); NEUTROPHILS % (AUTO) 68 % (42-75); PLATELET COUNT 223 10^3/uL (130-400); WHITE BLOOD COUNT 6.6 10^3/uL (4.3-11.0)
[2021-02-15 06:25] LABS: POTASSIUM 3.6 MMOL/L (3.6-5.0)
[2021-02-15 06:26] LABS: CALCIUM 8.6 MG/DL (8.5-10.1)
[2021-02-15 06:27] LABS: TOTAL PROTEIN 5.6 GM/DL (6.4-8.2)
[2021-02-15 06:29] LABS: BILIRUBIN,TOTAL 3.4 MG/DL (0.1-1.0)
[2021-02-15 06:31] LABS: CREATININE SERUM 2.53 MG/DL (0.60-1.30)
[2021-02-15 08:00] VITALS: BP 188/89
[2021-02-15] MEDS: metroNIDAZOLE 500 MG/100 ML IVPB (PRE-MIX) IV SCH ×2 (08:38→19:42)
[2021-02-15] MEDS: amLODIPine 10 MG (NORVASC) TAB PO SCH (08:38)
[2021-02-15] MEDS: meTOproloL SUCCINATE 50 MG (TOPROL XL) TAB PO SCH (08:38)
[2021-02-15] MEDS: CIPROFLOXACIN 400 MG/D5W 200 ML (PRE-MIX) IV SCH ×2 (08:43→20:51)
[2021-02-15] MEDS: PANTOPRAZOLE 40 MG (PROTONIX) VIAL IV SCH ×2 (08:43→19:41)
[2021-02-15] MEDS ORDERED: amLODIPine 5 MG (NORVASC) TAB PO NR (10:00)
[2021-02-15 12:00] VITALS: BP 182/85
[2021-02-15] MEDS ORDERED: GLIM1TAB4 PO (12:17)
[2021-02-15] MEDS ORDERED: MTP25TSR PO (12:17)
[2021-02-15] MEDS ORDERED: IBUP-2473 PO (12:17)
[2021-02-15] MEDS ORDERED: AMLO-251 PO (12:17)
[2021-02-15] MEDS ORDERED: LISI40TA9 PO (12:17)
[2021-02-15] MEDS ORDERED: ATOR20TA66 PO (12:17)
[2021-02-15] MEDS ORDERED: METF-865 PO (12:20)
[2021-02-15] MEDS ORDERED: POLY119P5 PO (12:21)
[2021-02-15] MEDS ORDERED: POLY17PO6 PO (12:22)
[2021-02-15 13:29] LABS: CLARITY,URINE CLEAR; COLOR,URINE YELLOW; GLUCOSE, URINE (UA) TRACE (NEGATIVE); KETONES,URINE NEGATIVE (NEGATIVE); LEUKOCYTE ESTERASE ,URINE NEGATIVE (NEGATIVE); NITRITE,URINE NEGATIVE (NEGATIVE); PROTEIN,URINE 2+ (NEGATIVE)
[2021-02-15] MEDS: ENOXAPARIN 40 MG/0.4 ML (LOVENOX) SYR SC SCH (13:46)
--- NOTE | 2021-02-15 13:51 | Progress Note - Hospitalist ---
SETH SLADE 02/15/21 1351: Subjective HPI/CC On Admission Date Seen by Provider: Feb 15, 2021 Time Seen by Provider: 09:00 Chief complaint: Abdominal pain History of present illness: This is a 50-year-old white male who presented with abdominal pain found to have acute cholecystitis with possible biliary obst ruction. LFTs are stable and hopefully will trend down to be able to undergo cholecystectomy tomorrow after MRCP. Patient doing well and has no complaints. Protonix will be given twice daily and Tums. Subjective/Events-last exam MRCP scheduled today Pt "feeling good" No pain 0/10 Has not had a bowel movement since hospitalization Focused Exam Respiratory: Normal Breath Sounds, No Accessory Muscle Use, No Respiratory Distress Skin: normal color Objective Exam Vital Signs Vital Signs Date Time Temp Pulse Resp B/P (MAP) Pulse Ox O2 Delivery O2 Flow Rate FiO2 02/15/21 12:00 36.0 87 18 182/85 (117) 94 Room Air Capillary Refill : Less Than 3 Seconds General Appearance: No Apparent Distress, WD/WN Respiratory: No Accessory Muscle Use, No Respiratory Distress Neurologic/Psychiatric: Alert, Oriented x3, Normal Mood/Affect Skin: Normal Color Results/Procedures Lab Laboratory Tests 02/15/21 05:51 Patient resulted labs reviewed. Assessment/Plan Assessment and Plan Assess & Plan/Chief Complaint Assessment: Acute cholecystitis Biliary obstruction Elevated LFT's (Bili 3.4, AST 215, ALT 350, AlkPhos 285) Hyperglycemia (134) HTN (188/89 with current meds) Cr 2.53, BUN 21 Plan: MRCP results not yet available Get UA to check for ptn (unexplained elevated Cr) Start Amlodipine for BP Continue to monitor LFTs Continue Lovenox for anticoag Continue Metronidazole and Ciprofloxacin abx prophylaxis Monitor glucose and utilize sliding scale insulin JESSY SALDANA DO 02/16/21 0608: Subjective Subjective/Events-last exam MRCP revealed stone in CBD Needs ERCP then choly Review of Systems General: Fatigue Objective Exam General Appearance: No Apparent Distress, WD/WN, Chronically ill Assessment/Plan Assessment and Plan Assess & Plan/Chief Complaint DC NSAID Monitor creat Norvasc for BP elevation Supervisory-Addendum Brief Verification & Attestation Participated in pt care: history, MDM, physical Personally performed: exam, history, MDM, supervision of care Care discussed with: Medical Student Procedures: n/a Results interpretation: Verified all documentation Verification and Attestation of Medical Student E/M Service A medical student performed and documented this service in my presence. I reviewed and verified all information documented by the medical student and made modifications to such information, when appropriate. I personally performed the physical exam and medical decision making. Jessy Saldana, Feb 16, 2021,06:06 SETH SLADE Feb 15, 2021 13:51 JESSY SALDANA DO Feb 16, 2021 06:08
[2021-02-15 13:53] LABS: BILIRUBIN,URINE 1+ (NEGATIVE)
[2021-02-15 13:54] LABS: AMORPHOUS SEDIMENT,UR FEW AMOR URATES /LPF; BACTERIA,URINE TRACE /HPF; GRANULAR CASTS,URINE 0-2 /LPF; RBC,URINE 0-2 /HPF
--- NOTE | 2021-02-15 14:29 | Diagnostic Imaging Report ---
PROCEDURE: MR imaging cholangiography-pancreatography. TECHNIQUE: Multiplanar imaging of the abdomen was performed on a 1.5 Tana magnet without contrast. 3D reconstructions were made for the MRCP. INDICATION: Hyperbilirubinemia and ductal dilation. COMPARISON: Gallbladder ultrasound of 02/14/2021. FINDINGS: The gallbladder is filled with numerous gallstones and has diffuse wall thickening. The common bile duct measures 5 mm. There is a rounded 3 mm filling defect within the proximal common bile duct, most indicative of choledocholithiasis. The common hepatic duct measures 10 mm. No pancreatic divisum or pancreatic duct dilatation. No hepatic steatosis or focal hepatic mass. No abnormal restricted diffusion outside of the gallbladder wall. Spleen is normal. No ascites. No adrenal mass or hydronephrosis. Pancreas is unremarkable. IMPRESSION: 1. Thickened gallbladder with cholelithiasis is suspicious for acute cholecystitis. 2. Choledocholithiasis also present with a 3 mm stone in the upper common bile duct. The common hepatic duct measures up to 10 mm proximal to the intraductal stone. Dictated by: Dictated on workstation # [id number]
[2021-02-15 15:48] VITALS: BP 177/88
[2021-02-15] MEDS ORDERED: KETOROLAC 30 MG/ML VIAL ONE (17:16)
[2021-02-15] MEDS: KETOROLAC 15 MG/ML VIAL IVP PRN (17:32)
--- NOTE | 2021-02-15 17:59 | Progress Note ---
Subjective Date Seen by a Provider: Feb 15, 2021 Time Seen by a Provider: 17:30 Subjective/Events-last exam doing ok. still has abd pain. no fever/chills. t joleen continues to be elevated. MRCP showed common ductal stone. Objective Exam Vital Signs Date Time Temp Pulse Resp B/P (MAP) Pulse Ox O2 Delivery O2 Flow Rate FiO2 02/15/21 15:48 36.2 75 18 177/88 (117) 95 Room Air 02/15/21 12:00 36.0 87 18 182/85 (117) 94 Room Air 02/15/21 09:00 94 Room Air 02/15/21 08:00 37.1 77 20 188/89 (122) 94 Room Air 02/15/21 04:46 36.8 72 18 175/83 (113) 96 Room Air 02/15/21 00:21 36.7 69 20 165/82 (109) 97 Room Air 02/14/21 19:53 36.5 75 18 175/90 (118) 95 Room Air 02/14/21 19:45 Room Air I & O 02/15/21 07:00 Intake Total 1130 ml Output Total 2 ml Balance 1128 ml Capillary Refill : Less Than 3 Seconds General Appearance: No Apparent Distress HEENT: PERRL/EOMI Neck: Full Range of Motion Respiratory: Chest Non Tender, Lungs Clear, Normal Breath Sounds Cardiovascular: Regular Rate, Rhythm Gastrointestinal: soft, tenderness Extremity: Normal Capillary Refill Neurologic/Psychiatric: Alert, Oriented x3 Skin: Normal Color Lymphatic: No Adenopathy Results Lab Laboratory Tests 02/14/21 18:36: Glucometer 149H 02/14/21 20:58: Glucometer 166H 02/15/21 05:13: Glucometer 119H 02/15/21 05:51: White Blood Count 6.6, Red Blood Count 3.67L, Hemoglobin 10.3L, Hematocrit 31L, Mean Corpuscular Volume 84, Mean Corpuscular Hemoglobin 28, Mean Corpuscular Hemoglobin Concent 33, Red Cell Distribution Width 13.2, Platelet Count 223, Mean Platelet Volume 10.8, Immature Granulocyte % (Auto) 0, Neutrophils (%) (Auto) 68, Lymphocytes (%) (Auto) 17, Monocytes (%) (Auto) 9, Eosinophils (%) (Auto) 6, Basophils (%) (Auto) 1, Neutrophils # (Auto) 4.5, Lymphocytes # (Auto) 1.1, Monocytes # (Auto) 0.6, Eosinophils # (Auto) 0.4H, Basophils # (Auto) 0.0, Immature Granulocyte # (Auto) 0.0, Sodium Level 135, Potassium Level 3.6, Chloride Level 108H, Carbon Dioxide Level 19L, Anion Gap 8, Blood Urea Nitrogen 21H, Creatinine 2.53#H, Estimat Glomerular Filtration Rate 27, BUN/Creatinine Ratio 8, Glucose Level 134H, Calcium Level 8.6, Corrected Calcium 9.4, Total Bilirubin 3.4H, Aspartate Amino Transf (AST/SGOT) 215H, Alanine Aminotransferase (ALT/SGPT) 350H, Alkaline Phosphatase 285H, Total Protein 5.6L, Albumin 3.0L 02/15/21 11:54: Glucometer 153H 02/15/21 13:23: Urine Color YELLOW, Urine Clarity CLEAR, Urine pH 6.0, Urine Specific [place] 1.015L, Urine Protein 2+H, Urine Glucose (UA) TRACEH, Urine Ketones NEGATIVE, Urine Nitrite NEGATIVE, Urine Bilirubin 1+H, Urine Urobilinogen 0.2, Urine Leukocyte Esterase NEGATIVE, Urine RBC (Auto) 1+H, Urine RBC 0-2, Urine WBC NONE, Urine Squamous Epithelial Cells 2-5, Urine Crystals PRESENTH, Urine Amorphous Sediment FEW MASHA URATESH, Urine Bacteria TRACE, Urine Casts PRESENT, Urine Granular Casts 0-2H, Urine Mucus NEGATIVE, Urine Culture Indicated NO 02/15/21 15:51: Glucometer 178H Assessment/Plan Assessment/Plan Assess & Plan/Chief Complaint cholelithiasis with cholecystitis and choledocholithiasis. will need GI transfer for ERCP, stone extraction and stent placment. will then need interval cholecystectomy. CARLOS CARRASCO MD Feb 15, 2021 17:59
[2021-02-15] MEDS ORDERED: oxyCODONE/APAP 5/325MG (PERCOCET 5) TABLET PO PRN (18:00)
[2021-02-15 20:18] VITALS: BP 180/87
[2021-02-16 00:11] VITALS: BP 172/84
[2021-02-16] MEDS: KETOROLAC 15 MG/ML VIAL IVP PRN (01:25)
[2021-02-16 04:17] VITALS: BP 174/85
[2021-02-16] MEDS ORDERED: diphenhydrAMINE 50 MG/ML INJ (BENADRYL) IVP PRN (05:45)
[2021-02-16] MEDS ORDERED: diphenhydrAMINE 25 MG TAB (BENADRYL) PO PRN (05:45)
[2021-02-16] MEDS: TRIAMCINOLONE 0.5% CR (KENALOG) 15 GM TUBE TOP SCH ×3 (05:46→22:53)
[2021-02-16] MEDS: inSUlin ASPART (NovoLOG) 1 UNIT/0.01 ML (CHARGE PER UNIT) SC SCH ×4 (05:49→22:11)
[2021-02-16 05:52] LABS: BASOPHILS % (AUTO) 1 % (0-10); EOSINOPHILS # (AUTO) 0.6 10^3/uL (0.0-0.3); EOSINOPHILS % (AUTO) 7 % (0-10); HEMATOCRIT 31 % (40-54); HEMOGLOBIN 10.2 g/dL (13.3-17.7); LYMPHOCYTES # (AUTO) 1.3 10^3/uL (1.0-4.0); LYMPHOCYTES % (AUTO) 16 % (12-44); MEAN CORPUSCULAR HEMOGLOBIN 28 pg (25-34); MEAN CORPUSCULAR HGB CONC 33 g/dL (32-36); MEAN CORPUSCULAR VOLUME 84 fL (80-99); MEAN PLATELET VOLUME 10.5 fL (9.0-12.2); MONOCYTES # (AUTO) 0.5 10^3/uL (0.0-1.0); MONOCYTES % (AUTO) 7 % (0-12); NEUTROPHILS # (AUTO) 5.7 10^3/uL (1.8-7.8); NEUTROPHILS % (AUTO) 70 % (42-75); PLATELET COUNT 225 10^3/uL (130-400); WHITE BLOOD COUNT 8.1 10^3/uL (4.3-11.0)
[2021-02-16 06:05] LABS: POTASSIUM 3.9 MMOL/L (3.6-5.0)
[2021-02-16 06:07] LABS: CALCIUM 8.6 MG/DL (8.5-10.1)
[2021-02-16 06:08] LABS: TOTAL PROTEIN 5.7 GM/DL (6.4-8.2)
[2021-02-16 06:09] LABS: BILIRUBIN,TOTAL 1.8 MG/DL (0.1-1.0)
[2021-02-16 06:11] LABS: CREATININE SERUM 2.65 MG/DL (0.60-1.30)
[2021-02-16] MEDS: LACTATED RINGERS 1,000 ML IV SCH ×2 (06:59→16:13)
[2021-02-16 07:59] VITALS: BP 179/88
[2021-02-16] MEDS ORDERED: amLODIPine 5 MG (NORVASC) TAB PO SCH (09:00)
[2021-02-16] MEDS: CIPROFLOXACIN 400 MG/D5W 200 ML (PRE-MIX) IV SCH ×2 (09:01→23:34)
[2021-02-16] MEDS: polyethylene glycoL POWDER 17 GM (MIRALAX) PACK PO SCH (09:02)
[2021-02-16] MEDS: metroNIDAZOLE 500 MG/100 ML IVPB (PRE-MIX) IV SCH ×2 (09:02→22:11)
[2021-02-16] MEDS: PANTOPRAZOLE 40 MG (PROTONIX) VIAL IV SCH ×2 (09:02→22:11)
[2021-02-16 11:09] VITALS: BP 178/92
--- NOTE | 2021-02-16 12:28 | Progress Note - Hospitalist ---
SETH SLADE 02/16/21 1228: Subjective HPI/CC On Admission Chief complaint: Abdominal pain History of present illness: This is a 50-year-old white male who presented with abdominal pain found to have acute cholecystitis with possible biliary obstruction. LFTs are stable and hopefully will trend down to be able to undergo cholecystectomy tomorrow after MRCP. Patient doing well and has no complaints. Protonix will be given twice daily and Tums. Subjective/Events-last exam Pt awaiting transport to [place] Pt reports feeling well, in no pain Reports new bilat itchy foot rash Eating and drinking regularly No bowel movement since hospitalization; urinating regularly Mentions he is usually on metformin for his glucose Focused Exam Respiratory: Lungs Clear, Normal Breath Sounds Cardiovascular: Regular Rate, Rhythm Skin: rash (bilat foot rash; itchy) Objective Exam Vital Signs Vital Signs Date Time Temp Pulse Resp B/P (MAP) Pulse Ox O2 Delivery O2 Flow Rate FiO2 02/16/21 11:09 36.1 75 18 178/92 (120) 98 Room Air Capillary Refill : Less Than 3 Seconds General Appearance: No Apparent Distress, WD/WN Respiratory: Lungs Clear, Normal Breath Sounds Cardiovascular: Regular Rate, Rhythm Neurologic/Psychiatric: Alert, Oriented x3, Normal Mood/Affect Skin: Rash (erythematous, itchy bilat foot rash) Results/Procedures Lab Laboratory Tests 02/16/21 05:45 Patient resulted labs reviewed. Assessment/Plan Assessment and Plan Assess & Plan/Chief Complaint Assessment: Acute cholecystitis Biliary obstruction Bilat foot rash- erythematous, itch improved with Diphenhydramine; suspected delayed hypersensitivity Elevated LFT's (Bili 1.8, AST 137, ALT 295, AlkPhos 305) Hyperglycemia (143) HTN (179/88) Possible nephrotic process- Cr 2.65, BUN 18, 2+ ptn in urine Plan: MRCP showed 3mm stone in common bile duct Norvasc started yesterday for BP Continue to monitor LFTs Consider possible causes/substitutions for rash (Cipro, Percocet, MRCP contrast, etc) Continue Lovenox for anticoag Monitor kidney fxn closely Monitor glucose; consider metformin if glucose continues to inc JESSY SALDANA DO 02/17/21 0554: Subjective HPI/CC On Admission Date Seen by Provider: Feb 16, 2021 Time Seen by Provider: 10:00 Subjective/Events-last exam Needs ERCP for stone in CBD NO pain reported Wants to go home soon Review of Systems General: Fatigue, Malaise Gastrointestinal: Abdominal Pain Objective Exam General Appearance: No Apparent Distress, WD/WN, Obese Respiratory: Lungs Clear Cardiovascular: Regular Rate, Rhythm Assessment/Plan Assessment and Plan Assess & Plan/Chief Complaint Needs ERCP UA noted proteinuria CKD suspected Supervisory-Addendum Brief Verification & Attestation Participated in pt care: history, MDM, physical Personally performed: exam, history, MDM, supervision of care Care discussed with: Medical Student Procedures: n/a Results interpretation: Verified all documentation Verification and Attestation of Medical Student E/M Service A medical student performed and documented this service in my presence. I reviewed and verified all information documented by the medical student and made modifications to such information, when appropriate. I personally performed the physical exam and medical decision making. Jessy Saldana, Feb 17, 2021,05:54 SETH SLADE Feb 16, 2021 12:28 JESSY SALDANA DO Feb 17, 2021 05:54
[2021-02-16] MEDS: ENOXAPARIN 40 MG/0.4 ML (LOVENOX) SYR SC SCH (15:09)
[2021-02-16 15:42] VITALS: BP 150/70
[2021-02-16] MEDS ORDERED: LORazepam 1 MG (ATIVAN) TAB PO PRN (15:45)
[2021-02-16] MEDS ORDERED: amLODIPine 10 MG (NORVASC) TAB PO SCH (18:00)
[2021-02-16 20:10] VITALS: BP 152/90
[2021-02-17 00:45] VITALS: BP 172/89
[2021-02-17] MEDS: LACTATED RINGERS 1,000 ML IV SCH ×2 (01:18→10:31)
[2021-02-17 03:39] VITALS: BP 162/90
[2021-02-17 05:27] LABS: BASOPHILS % (AUTO) 0 % (0-10); EOSINOPHILS # (AUTO) 0.6 10^3/uL (0.0-0.3); EOSINOPHILS % (AUTO) 7 % (0-10); HEMATOCRIT 31 % (40-54); HEMOGLOBIN 10.3 g/dL (13.3-17.7); LYMPHOCYTES # (AUTO) 1.1 10^3/uL (1.0-4.0); LYMPHOCYTES % (AUTO) 14 % (12-44); MEAN CORPUSCULAR HEMOGLOBIN 29 pg (25-34); MEAN CORPUSCULAR HGB CONC 34 g/dL (32-36); MEAN CORPUSCULAR VOLUME 85 fL (80-99); MEAN PLATELET VOLUME 10.7 fL (9.0-12.2); MONOCYTES # (AUTO) 0.5 10^3/uL (0.0-1.0); MONOCYTES % (AUTO) 7 % (0-12); NEUTROPHILS # (AUTO) 5.7 10^3/uL (1.8-7.8); NEUTROPHILS % (AUTO) 71 % (42-75); PLATELET COUNT 232 10^3/uL (130-400)
[2021-02-17 05:33] LABS: ALBUMIN 2.9 GM/DL (3.2-4.5); POTASSIUM 3.8 MMOL/L (3.6-5.0)
[2021-02-17 05:35] LABS: CALCIUM 8.7 MG/DL (8.5-10.1)
[2021-02-17 05:36] LABS: TOTAL PROTEIN 5.6 GM/DL (6.4-8.2)
[2021-02-17 05:38] LABS: BILIRUBIN,TOTAL 1.1 MG/DL (0.1-1.0)
[2021-02-17 05:39] LABS: CREATININE SERUM 2.17 MG/DL (0.60-1.30)
[2021-02-17] MEDS: inSUlin ASPART (NovoLOG) 1 UNIT/0.01 ML (CHARGE PER UNIT) SC SCH ×2 (05:59→11:44)
[2021-02-17 07:25] VITALS: BP 183/88
[2021-02-17] MEDS: CIPROFLOXACIN 400 MG/D5W 200 ML (PRE-MIX) IV SCH (08:35)
[2021-02-17] MEDS: PANTOPRAZOLE 40 MG (PROTONIX) VIAL IV SCH (08:35)
[2021-02-17] MEDS: metroNIDAZOLE 500 MG/100 ML IVPB (PRE-MIX) IV SCH (08:35)
[2021-02-17] MEDS: polyethylene glycoL POWDER 17 GM (MIRALAX) PACK PO SCH (08:35)
[2021-02-17] MEDS: TRIAMCINOLONE 0.5% CR (KENALOG) 15 GM TUBE TOP SCH (08:38)
[2021-02-17] MEDS ORDERED: hydrALAZINE (APRESOLINE) 25 MG TAB PO SCH (10:30)
[2021-02-17 11:30] VITALS: BP 188/94
--- NOTE | 2021-02-17 12:37 | Progress Note - Hospitalist ---
SETH SLADE 02/17/21 1237: Subjective HPI/CC On Admission Date Seen by Provider: Feb 17, 2021 Time Seen by Provider: 08:30 Chief complaint: Abdominal pain History of present illness: This is a 50-year-old white male who presented with abdominal pain found to have acute cholecystitis with possible biliary obst ruction. LFTs are stable and hopefully will trend down to be able to undergo cholecystectomy tomorrow after MRCP. Patient doing well and has no complaints. Protonix will be given twice daily and Tums. Subjective/Events-last exam Awaiting transport to [place] for ERCP at 3pm [address] Dr[address] 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 [employer] Focused Exam Respiratory: Lungs Clear, Normal Breath Sounds Cardiovascular: Regular Rate, Rhythm Skin: rash (bilat dorsum of feet) Objective Exam Vital Signs Vital Signs Date Time Temp Pulse Resp B/P (MAP) Pulse Ox O2 Delivery O2 Flow Rate FiO2 02/17/21 11:30 37.0 70 18 188/94 (125) 98 Room Air Capillary Refill : Less Than 3 Seconds General Appearance: No Apparent Distress, WD/WN Respiratory: Lungs Clear, Normal Breath Sounds Cardiovascular: Regular Rate, Rhythm Neurologic/Psychiatric: Alert, Oriented x3, Normal Mood/Affect Skin: Rash (erythematous rash on bilat dorsum of feet) Results/Procedures Lab Laboratory Tests 02/17/21 05:10 Patient resulted labs reviewed. Assessment/Plan Assessment and Plan Assess & Plan/Chief Complaint Assessment: Acute cholecystitis Biliary obstruction Bilat foot rash- erythematous, itch improved with Diphenhydramine; suspected delayed hypersensitivity Elevated LFT's (Bili 1.1, AST 70, ALT 215, AlkPhos 250) Hyperglycemia (121) HTN (183/88) Hypertensive Nephropathy- Cr 2.17, 2+ ptn in urine Plan: ERCP today at [facility]; may return for surgical management of stone Norvasc and hydralazine started for BP Monitor rash for improvement; continue benedryll as needed Monitor glucose; consider metformin (home medication) if glucose inc F/U with [employer] Continue Lovenox for anticoag JESSY SALDANA DO 02/18/21 0447: Objective Exam General Appearance: No Apparent Distress, WD/WN, Chronically ill, Obese Supervisory-Addendum Brief Verification & Attestation Participated in pt care: history, MDM, physical Personally performed: exam, history, MDM, supervision of care Care discussed with: Medical Student Procedures: n/a Results interpretation: Verified all documentation Verification and Attestation of Medical Student E/M Service A medical student performed and documented this service in my presence. I r eviewed and verified all information documented by the medical student and made modifications to such information, when appropriate. I personally performed the physical exam and medical decision making. Jessy Saldana, Feb 18, 2021,04:46 SETH SLADE Feb 17, 2021 12:37 JESSY SALDANA DO Feb 18, 2021 04:47
--- NOTE | 2021-02-18 04:46 | Discharge Summary ---
Discharge Summary Hospital Course Was the Problem List Reviewed?: Yes Problems/Dx: (1) Acute cholecystitis due to biliary calculus Status: Acute Hospital Course Date of Admission: Feb 13, 2021 at 19:18 Admission Diagnosis : Family Physician/Provider: No,Local Physician Date of Discharge: 02/18/21 Discharge Diagnosis: Biliary system obstruction requiring ERCP Elevated LFTs Hypertensive nephropathy with proteinuria Hypertension Hospital Course: Short course after admitted for biliary obstruction with gallstones patient was placed on antibiotic to cover for cholecystitis and Dr. CARRASCO arranged ERCP to [place] because stone found in common bile duct on MRCP. Hypertension remained [id number] he has a known history of hypertensive nephropathy and is arranging to see a county records management officer in the near future. Labs and Pending Lab Test: Laboratory Tests 02/17/21 05:10: White Blood Count 8.0, Red Blood Count 3.60L, Hemoglobin 10.3L, Hematocrit 31L, Mean Corpuscular Volume 85, Mean Corpuscular Hemoglobin 29, Mean Corpuscular Hemoglobin Concent 34, Red Cell Distribution Width 13.4, Platelet Count 232, Mean Platelet Volume 10.7, Immature Granulocyte % (Auto) 0, Neutrophils (%) (Auto) 71, Lymphocytes (%) (Auto) 14, Monocytes (%) (Auto) 7, Eosinophils (%) (Auto) 7, Basophils (%) (Auto) 0, Neutrophils # (Auto) 5.7, Lymphocytes # (Auto) 1.1, Monocytes # (Auto) 0.5, Eosinophils # (Auto) 0.6H, Basophils # (Auto) 0.0, Immature Granulocyte # (Auto) 0.0, Sodium Level 140, Potassium Level 3.8, Chloride Level 110H, Carbon Dioxide Level 20L, Anion Gap 10, Blood Urea Nitrogen 13, Creatinine 2.17H, Estimat Glomerular Filtration Rate 33, BUN/Creatinine Ratio 6, Glucose Level 121H, Calcium Level 8.7, Corrected Calcium 9.6, Total Bilirubin 1.1H, Aspartate Amino Transf (AST/SGOT) 70H, Alanine Aminotransferase (ALT/SGPT) 215H, Alkaline Phosphatase 250H, Total Protein 5.6L, Albumin 2.9L 02/17/21 11:40: Glucometer 161H Home Meds Active Reported Miralax (Polyethylene Glycol 3350) 17 Gm Powd.pack 17 Gm PO DAILY Metformin HCl ER (Metformin HCl) 500 Mg Tab.er.24h 1,000 Mg PO BID Ibuprofen 200 Mg Tablet 400 Mg PO Q8H PRN 2 TABS Metoprolol Succinate 25 Mg Tab.er.24h 25 Mg PO 1800 Atorvastatin Calcium 20 Mg Tablet 20 Mg PO 1800 Glimepiride 1 Mg Tablet 1 Mg PO 1800 Amlodipine Besylate 10 Mg Tablet 10 Mg PO 1800 Lisinopril 40 Mg Tablet 40 Mg PO 1800 Assessment/Pt Instructions Transferred to [place] for ERCP Discharge Planning: <30 minutes discharge planning Discharge Instructions Discharge Diet: Other Diet (NPO) Activity as Tolerated: Yes Discharge Physical Examination Vital Signs Vital Signs Date Time Temp Pulse Resp B/P (MAP) Pulse Ox O2 Delivery O2 Flow Rate FiO2 02/17/21 11:30 37.0 70 18 188/94 (125) 98 Room Air General Appearance: No Apparent Distress, WD/WN, Chronically ill Respiratory: Lungs Clear Cardiovascular: Regular Rate, Rhythm Neurologic/Psychiatric: Alert, Oriented x3, No Motor/Sensory Deficits, Normal Mood/Affect Allergies: Coded Allergies: No Known Drug Allergies (Unverified , 10/03/17) Discharge Summary Date of Admission Feb 13, 2021 at 19:18 Date of Discharge Feb 17, 2021 at 13:40 Admission Diagnosis Assessment: Acute cholecystitis Biliary obstruction r/o mass vs. stone with MRCP tomorrow Elevated LFT's Plan: Monitor liver function IV abx Discharge Diagnosis Needs ERCP UA noted proteinuria CKD suspected (1) Acute cholecystitis due to biliary calculus Status: Acute KIMBERLY SALDANA DO Feb 18, 2021 04:46
[2021-02-20] MEDS ORDERED: KETOROLAC 15 MG/ML VIAL IVP PRN (17:00)
== END 2021-02-17 13:40 | disposition short-term general hospital (02) | DRG 446 ==
LOC: EDUNIT# 17:54 → ER 17:55 → 4TH 19:18 → UNDOLOA 02-17 13:40
PROVIDERS: ADMIT Internal Medicine; ATTEND Internal Medicine
DX: K80.63 Calculus of gallbladder and bile duct with acute cholecystitis with obstruction (principal); I12.9 Hypertensive chronic kidney disease with stage 1 through stage 4 chronic kidney disease, or unspecified chronic kidney disease; N18.9 Chronic kidney disease, unspecified; E11.22 Type 2 diabetes mellitus with diabetic chronic kidney disease; E11.65 Type 2 diabetes mellitus with hyperglycemia; B08.8 Other specified viral infections characterized by skin and mucous membrane lesions; R80.9 Proteinuria, unspecified
CPT/HCPCS: 36415; 74177; 74181; 76705; 80053; 80320; 81000; 82947; 83690; 85025; 96374; 96375; 99283